=== PATIENT | male | born 1985 | race Caucasian/White ===

== ENCOUNTER 2021-10-17 21:48 | Emergency (ER) | payer OTHER ==
[2021-10-17 21:54] VITALS: BP 132/91
[2021-10-17 22:01] VITALS: BP 129/74
[2021-10-17 22:14] LABS: HEMATOCRIT 44.9 % (39.0-50.0); HEMOGLOBIN 14.1 g/dl (14.0-18.0); IMMATURE GRANULOCYTES 0.3 % (0.0-5.0); MEAN CELL VOLUME 93.7 fL CALC (80.0-100.0); MEAN CORPUSCULAR HGB 29.4 pG CALC (26.0-32.0); MEAN CORPUSCULAR HGB CONC 31.4 g/dL CAL (32.0-36.0); NEUT# 7.41 thou/uL (1.82-7.42); RED BLOOD COUNT 4.79 mill/uL (4.70-6.10); RED CELL DISTRI WIDTH 13.6 % (11.5-15.5)
[2021-10-17 22:26] LABS: URINE BILIRUBIN - DIPSTICK NEGATIVE (NEGATIVE); URINE BLOOD DIPSTICK TRACE-INTACT (NEGATIVE); URINE COLOR YELLOW; URINE GLUCOSE - DIPSTICK NEGATIVE (NEGATIVE); URINE KETONE NEGATIVE (NEGATIVE); URINE LEUK ESTERASE NEGATIVE (NEGATIVE); URINE PROTEIN - DIPSTICK NEGATIVE (NEG-TRACE); URINE UROBILINOGEN - DIPSTICK 0.2 E.U./dL (0.2)
[2021-10-17 22:31] VITALS: BP 125/69
[2021-10-17 22:31] LABS: URINE NITRITE - DIPSTICK NEGATIVE (Negative)
[2021-10-17 22:36] LABS: ALBUMIN 4.2 g/dL (3.2-5.0); ALKALINE PHOSPHATASE 111 u/l (38-126); ANION GAP 13 (6-22 (CALC)); BILIRUBIN, TOTAL 0.4 mg/dL (0.0-1.4); BUN 17 mg/dL (9-20); BUN/CREATININE RATIO 14 (12-20 (CALC)); CARBON DIOXIDE 22 mmol/l (22-30); CHLORIDE 106 mmol/l (95-108); CREATININE 1.2 mg/dL (0.7-1.3); GFR FOR AFR.AMER. > 60 ML/MIN (>=60 (CALC)); GFR OTHER RACES > 60 ML/MIN (>=60 (CALC)); POTASSIUM 3.9 mmol/l (3.5-5.1); SGOT/AST 26 u/l (17-59); SODIUM 137 mmol/l (137-146); TOTAL PROTEIN 7.3 g/dL (6.3-8.2)
[2021-10-17 22:48] LABS: MYOGLOBIN 53 ng/mL (0 - 121)
[2021-10-17 23:01] VITALS: BP 121/66
[2021-10-17] MEDS ORDERED: NAPROXEN500 MG PO (23:03)
[2021-10-17 23:06] VITALS: BP 121/66
[2021-10-17 23:07] LABS: TSH, 3RD GENERATION 7.78 uIU/mL (0.47 - 4.68)
== END 2021-10-17 23:14 | disposition home or self-care (01) | DRG 313 ==
LOC: ED 21:48
PROVIDERS: Emergency Medicine
DX: R07.89 Other chest pain (principal); F17.200 Nicotine dependence, unspecified, uncomplicated

== ENCOUNTER 2021-11-08 12:16 | Emergency (ER) | payer OTHER ==
[2021-11-08] VITALS (9 sets, daily range): BP systolic 115–146; BP diastolic 70–96
[~2021-11-08 12:16] MED LIST: NAPROXEN500 MG PO
[2021-11-08 12:55] LABS: HEMATOCRIT 45.8 % (39.0-50.0); HEMOGLOBIN 14.6 g/dl (14.0-18.0); IMMATURE GRANULOCYTES 0.3 % (0.0-5.0); MEAN CELL VOLUME 91.6 fL CALC (80.0-100.0); MEAN CORPUSCULAR HGB 29.2 pG CALC (26.0-32.0); MEAN CORPUSCULAR HGB CONC 31.9 g/dL CAL (32.0-36.0); NEUT# 7.08 thou/uL (1.82-7.42); RED CELL DISTRI WIDTH 13.2 % (11.5-15.5)
[2021-11-08 13:11] LABS: ALBUMIN 4.2 g/dL (3.2-5.0); ALKALINE PHOSPHATASE 106 u/l (38-126); ANION GAP 13 (6-22 (CALC)); BUN 13 mg/dL (9-20); BUN/CREATININE RATIO 11 (12-20 (CALC)); CARBON DIOXIDE 26 mmol/l (22-30); CHLORIDE 105 mmol/l (95-108); CREATININE 1.2 mg/dL (0.7-1.3); GFR FOR AFR.AMER. > 60 ML/MIN (>=60 (CALC)); GFR OTHER RACES > 60 ML/MIN (>=60 (CALC)); SGOT/AST 26 u/l (17-59); SODIUM 140 mmol/l (137-146); TOTAL PROTEIN 7.3 g/dL (6.3-8.2)
[2021-11-08 13:12] LABS: BILIRUBIN, TOTAL 0.8 mg/dL (0.0-1.4)
[2021-11-08 13:22] LABS: MYOGLOBIN 43 ng/mL (0 - 121)
== END 2021-11-08 16:28 | disposition home or self-care (01) | DRG 313 ==
LOC: ED 12:16
PROVIDERS: Nurse Practitioner
DX: R07.89 Other chest pain (principal); E66.01 Morbid (severe) obesity due to excess calories

== ENCOUNTER 2023-05-12 20:11 | Emergency (ER) | payer BC ==
[~2023-05-12] VITALS: Ht 188 cm; Wt 171.0 kg
[2023-05-12] VITALS (9 sets, daily range): BP systolic 107–127; BP diastolic 65–86
[2023-05-12] MEDS ORDERED: AMLODIPINE BESYL5 MG PO (20:54)
[2023-05-12] MEDS ORDERED: LEVOTHYROXIN25 MC1 PO (20:55)
[2023-05-12] MEDS ORDERED: NITROGLYCERIN 2% OINT UD 1 GM/PAK TD ONE (21:20)
[2023-05-12] MEDS ORDERED: ASPIRIN 81 MG/TAB PO ONE (21:20)
[2023-05-12 21:38] LABS: BASO% 0.4 % (0-3); EOS% 1.1 % (0-8); HEMATOCRIT 44.8 % (39.0-50.0); HEMOGLOBIN 14.2 g/dl (14.0-18.0); IMMATURE GRANULOCYTES 0.2 % (0.0-5.0); LYMPH% 23.9 % (15-41); MEAN CELL VOLUME 91.1 fL CALC (80.0-100.0); MEAN CORPUSCULAR HGB 28.9 pG CALC (26.0-32.0); MEAN CORPUSCULAR HGB CONC 31.7 g/dL CAL (32.0-36.0); MONO% 7.6 % (2-13); NEUT# 8.44 thou/uL (1.82-7.42); NEUT% 66.8 % (42-76); RED BLOOD COUNT 4.92 mill/uL (4.70-6.10); RED CELL DISTRI WIDTH 13.3 % (11.5-15.5)
[2023-05-12 21:52] LABS: ALBUMIN 4.3 g/dL (3.2-5.0); ALKALINE PHOSPHATASE 108 u/l (38-126); AMYLASE 47 u/l (30-110); ANION GAP 11 (6-22 (CALC)); BILIRUBIN, TOTAL 0.7 mg/dL (0.2-1.3); BUN 14 mg/dL (9-20); BUN/CREATININE RATIO 14 (12-20 (CALC)); CARBON DIOXIDE 26 mmol/l (22-30); CHLORIDE 106 mmol/l (95-108); GFR FOR AFR.AMER. > 60 ML/MIN (>=60 (CALC)); GFR OTHER RACES > 60 ML/MIN (>=60 (CALC)); LIPASE 262 u/l (23-300); POTASSIUM 4.1 mmol/l (3.5-5.1); SGOT/AST 39 u/l (17-59); SODIUM 139 mmol/l (137-146); TOTAL PROTEIN 7.1 g/dL (6.3-8.2)
[2023-05-12 22:00] LABS: INTERNATIONAL NORMALIZED RATIO 1.2 RATIO (0.7-1.3)
[2023-05-12 22:11] LABS: D-DIMER 0.17 mg/L (0.19-0.60)
[2023-05-12 23:45] LABS: URINE BILIRUBIN - DIPSTICK Negative (NEGATIVE); URINE BLOOD DIPSTICK Trace-intact (NEGATIVE); URINE COLOR Yellow; URINE GLUCOSE - DIPSTICK Negative (NEGATIVE); URINE KETONE Negative (NEGATIVE); URINE LEUK ESTERASE Negative (NEGATIVE); URINE NITRITE - DIPSTICK Negative (Negative); URINE PH 6.5 (4.5-8.0); URINE PROTEIN - DIPSTICK Negative (NEG-TRACE); URINE SPECIFIC GRAVITY 1.015; URINE UROBILINOGEN - DIPSTICK 0.2 E.U./dL (0.2)
[2023-05-13] VITALS (9 sets, daily range): BP systolic 95–114; BP diastolic 62–68
== END 2023-05-13 01:38 | disposition home or self-care (01) | DRG 313 ==
LOC: ED 20:11
PROVIDERS: Emergency Medicine
DX: R07.89 Other chest pain (principal); I10 Essential (primary) hypertension